=== PATIENT | female | born 1955 | race Caucasian/White ===

== ENCOUNTER → 2019-05-08 | Day surgery (SDC) | payer BC ==
[~2019-05-08] MED LIST: Buffered Lidocaine 1% SYRIN* 1 ML/SYRINGE INTRADERM ONE; Dexamethasone IV* 4 MG/ML 1 ML (4 MG) ONE; Dextrose 50% VIAL 50 ml ONE; Famotidine IV* 10 MG/ML 2 ML (20 mg) IV ONE; Famotidine IV* 10 MG/ML 2 ML (20 mg) ONE; Lactated Ringers 1000 ML Bag* 1,000 ML IV SCH; Levofloxacin 500 MG IVPREMIX(* 500 MG/100 ML BAG IVPB ONE; Lidocaine 2% PF * 5 ML VIAL ONE; Midazolam* 1 MG/ML 5 ML VIAL (5 MG) ONE; Naloxone* 0.4 MG/ML 1 ML VIAL IV PRN; Ondansetron INJ* 2 MG/ML VIAL IV PRN; Ondansetron INJ* 2 MG/ML VIAL ONE; Phenylephrine 40 MCG/ML SYRINGE ONE; Propofol* 10 MG/ML 20 ML BTL ONE; fentaNYL* 50 MCG/ML 2 ML VIAL (100 MCG VIAL) IV PRN; fentaNYL* 50 MCG/ML 2 ML VIAL (100 MCG VIAL) ONE
[2019-05-08 15:29] VITALS: BP 133/74
--- NOTE | 2019-05-08 16:02 | OP ---
CC: Dr. Danielle Munoz; Dr. Lancaster * DATE OF OPERATION: 05/08/19 - [facility] DATE OF : 55 SURGEON: Yogi Lancaster MD ANESTHESIOLOGIST: Dr. Jennings. ANESTHESIA: General. PRE-OP DIAGNOSIS: Large multiple bilateral renal calculi. POST-OP DIAGNOSIS: Large multiple bilateral renal calculi. OPERATIVE PROCEDURE: Shockwave lithotripsy of left renal calculus. COMPLICATIONS: None. POSTOPERATIVE CONDITION: Stable. INDICATIONS: Lorene Mccarty is a 64-year-old lady with bilateral partial staghorn renal calculi. She had recently been evaluated for severe left hydronephrosis secondary to approximately 2-cm calculus at the left ureteropelvic junction. She had undergone successful stent insertion and is now being brought in for an attempted shockwave lithotripsy to try to fragment the calculus. Because of the large stone burden, I have explained to her that she may require multiple procedures including a followup ureteroscopy and laser lithotripsy to try and significantly reduce the stone burden. DESCRIPTION OF PROCEDURE: After induction of general anesthesia, the patient was placed on the lithotripsy table in supine position. The large calculus at the left ureteropelvic junction was identified on fluoroscopy and shockwave lithotripsy was commenced at a rate of 60 shocks per minute. Periodic imaging revealed adequate localization and a total of 2400 shocks were administered. The patient has additional multiple left renal calculi which I did not attempt to breakup at this time because of the limitations on how many shock waves could be used safely in a certain session. My plan is to obtain a postoperative x-ray to assess the degree of fragmentation and then to decide whether to bring her back for a ureteroscopy and laser lithotripsy. The patient tolerated the procedure satisfactorily and was transferred back to the recovery area in stable condition. [id number]/[facility] #: [id number] MTDD
== END | disposition home or self-care (01) ==
LOC: OR 09:13
PROVIDERS: ATTEND Urology
DX: N20.0 Calculus of kidney (principal); I10 Essential (primary) hypertension; E11.8 Type 2 diabetes mellitus with unspecified complications; Z79.84 Long term (current) use of oral hypoglycemic drugs; G47.33 Obstructive sleep apnea (adult) (pediatric); E78.00 Pure hypercholesterolemia, unspecified; D47.2 Monoclonal gammopathy; D86.9 Sarcoidosis, unspecified; Z86.711 Personal history of pulmonary embolism
CPT/HCPCS: 74018; J1100; J1956; J2250; J2405; J2704; J3010

== ENCOUNTER 2019-06-09 05:59 | Day surgery (SDC) | payer BC ==
--- NOTE | 2019-06-06 21:07 | HP ---
CC: Danielle Munoz MD; Maurilio Jacobsen MD; Lisbeth Salgado MD, [facility], [place] * ADMITTING HISTORY AND PHYSICAL: DATE OF ADMISSION: 06/09/19 ADMITTING DIAGNOSES: 1. Bilateral renal calculi. 2. Left hydronephrosis. PLANNED PROCEDURES: Left ureteroscopy and pyeloscopy, laser lithotripsy of left renal calculi, and left stent replacement. SURGEON: Yogi Lancaster MD. HISTORY OF PRESENT ILLNESS: Loerne Mccarty is a 64-year-old lady with multiple medical issues and large bilateral staghorn renal calculi. She had recently been evaluated for severe left hydronephrosis secondary to an obstructing calculus at the left ureteropelvic junction and had undergone left stent insertion followed by shockwave lithotripsy. This resulted in partial fragmentation, but she still has residual calculus, which I suspect will cause the current obstruction if I were to remove the left stent. She is now being brought in for an attempted laser lithotripsy to see if I can debulk the stone enough to be able to allow her to function without a stent. PAST MEDICAL HISTORY: Significant for: 1. Recurrent renal calculi. 2. Sarcoidosis. 3. History of monoclonal gammopathy. 4. Remote history of pulmonary embolism. 5. Diabetes mellitus. 6. Hypertension. 7. History of sleep apnea. 8. History of high cholesterol. PAST SURGICAL HISTORY: Significant for recent left stent insertion and shockwave lithotripsy. Prior to that, she has had 3 C-sections, laparotomy and hysterectomy, and surgery for a left ovarian cyst. MEDICATIONS: 1. Potassium citrate 30 mEq b.i.d. 2. Furosemide 10 mg daily. 3. Allopurinol 300 mg 2 tablets daily. 4. Simvastatin 20 mg once a day. 5. Metoprolol 50 mg daily. 6. Amlodipine 5 mg daily. 7. Metformin 1000 mg daily. 8. Hydroxychloroquine 200 mg b.i.d. 9. Glyburide 10 mg daily. 10. Eye drops. ALLERGIES AND INTOLERANCES: CEFZIL, CODEINE, NYSTATIN, VICODIN. SOCIAL HISTORY: Smoking history: She is a nonsmoker. FAMILY HISTORY: Negative for stones. REVIEW OF SYSTEMS: She denies any chest pain or shortness of breath. She does have moderate obesity, which limits her physical activity. PHYSICAL EXAMINATION GENERAL: Reveals a pleasant middle-aged lady. VITAL SIGNS: Blood pressure is 142/74, pulse 85 per minute and regular, temperature 97.5, oxygen saturation 96% on room air. LUNGS: Clear bilaterally. CARDIOVASCULAR: Regular rate and rhythm, S1, S2. ABDOMEN: Soft with a large ventral hernia and mild left costovertebral angle tenderness. IMPRESSION: A 64-year-old lady with large bilateral renal calculi and an obstructing calculus in the left ureteropelvic junction. PLAN: Plan is left ureteroscopy and pyeloscopy, laser lithotripsy of left renal calculus, and stent replacement. [id number]/[facility] #: [id number] MTDD
[~2019-06-09 05:59] MED LIST changes: -Dexamethasone IV* 4 MG/ML 1 ML (4 MG) ONE; -Dextrose 50% VIAL 50 ml ONE; -Famotidine IV* 10 MG/ML 2 ML (20 mg) IV ONE; -Famotidine IV* 10 MG/ML 2 ML (20 mg) ONE; -Lactated Ringers 1000 ML Bag* 1,000 ML IV SCH; -Levofloxacin 500 MG IVPREMIX(* 500 MG/100 ML BAG IVPB ONE; -Lidocaine 2% PF * 5 ML VIAL ONE; -Midazolam* 1 MG/ML 5 ML VIAL (5 MG) ONE; -Naloxone* 0.4 MG/ML 1 ML VIAL IV PRN; -Ondansetron INJ* 2 MG/ML VIAL IV PRN; -Ondansetron INJ* 2 MG/ML VIAL ONE; -Phenylephrine 40 MCG/ML SYRINGE ONE; -Propofol* 10 MG/ML 20 ML BTL ONE; -fentaNYL* 50 MCG/ML 2 ML VIAL (100 MCG VIAL) IV PRN; -fentaNYL* 50 MCG/ML 2 ML VIAL (100 MCG VIAL) ONE
[2019-06-09] MEDS ORDERED: Lactated Ringers 1000 ML Bag* 1,000 ML IV SCH (06:00)
[2019-06-09] MEDS ORDERED: Levofloxacin 500 MG IVPREMIX(* 500 MG/100 ML BAG IVPB ONE (06:49)
[2019-06-09] MEDS ORDERED: Gentamicin ADULT (*) 160 MG in NS 0.9% 100 ML* 100 ML IVPB ONE (07:00)
[2019-06-09] MEDS ORDERED: Iohexol 180 (CONTRAST) 10 ML SDV IV ONE (07:19)
[2019-06-09] MEDS ORDERED: Rocuronium* 10 MG/ML VIAL ONE (07:29)
[2019-06-09] MEDS ORDERED: Propofol* 10 MG/ML 20 ML BTL ONE (07:29)
[2019-06-09] MEDS ORDERED: fentaNYL* 50 MCG/ML 2 ML VIAL (100 MCG VIAL) ONE (07:29)
[2019-06-09] MEDS ORDERED: Midazolam* 1 MG/ML 2 ML VIAL (2 MG) ONE (07:30)
[2019-06-09] MEDS ORDERED: Lidocaine 2% PF * 5 ML VIAL ONE (07:44)
[2019-06-09] MEDS ORDERED: DiMENhydriNATE IV* 50 MG/ML VIAL IV PUSH PRN (08:07)
[2019-06-09] MEDS ORDERED: Scopolamine 1.5 mg* PATCH TRANSDERM PRN (08:07)
[2019-06-09] MEDS ORDERED: oxyCODONE TAB* 5 MG TAB PO PRN (08:07)
[2019-06-09] MEDS ORDERED: fentaNYL* 50 MCG/ML 2 ML VIAL (100 MCG VIAL) IV PRN (08:07)
[2019-06-09] MEDS ORDERED: Naloxone* 0.4 MG/ML 1 ML VIAL IV PRN (08:07)
[2019-06-09] MEDS ORDERED: Ondansetron INJ* 2 MG/ML VIAL IV PRN (08:07)
[2019-06-09] MEDS ORDERED: Furosemide IV* 10 MG/ML 2 ML VIAL (20 MG) ONE (08:32)
[2019-06-09] MEDS ORDERED: Glycopyrrolate IV* 0.2 MG/ML 1 ML VIAL ONE (09:05)
[2019-06-09] MEDS ORDERED: Neostigmine Methylsulfate* 3 MG/3 ML SYRINGE ONE (09:05)
[2019-06-09] MEDS ORDERED: Ondansetron INJ* 2 MG/ML VIAL ONE ×2 (09:33→09:54)
[2019-06-09 10:39] VITALS: BP 124/76
--- NOTE | 2019-06-09 12:44 | OP ---
CC: Dr. Danielle Munoz; Dr. Lancaster OPERATIVE REPORT: DATE OF OPERATION: 06/09/19 DATE OF : 55 SURGEON: Yogi Lancaster MD ANESTHESIOLOGIST: Dr. Peralta. ANESTHESIA: General. PRE-OP DIAGNOSIS: Multiple bilateral staghorn renal calculi. POST-OP DIAGNOSIS: Multiple bilateral staghorn renal calculi. OPERATIVE PROCEDURE: Cystoscopy, left stent removal, left retrograde pyelogram, left ureteroscopy, l eft pyeloscopy and laser lithotripsy of multiple left renal calculi and left stent insertion. COMPLICATIONS: None. POSTOPERATIVE CONDITION: Stable. STENT USED: A 8-Malaysian Elrosa universal length stent, left ureter. OPERATIVE FINDINGS: Multiple large staghorn left renal calculi with left hydronephrosis. INDICATIONS: Lorene Mccarty is a 64-year-old lady with bilateral staghorn calculi. She had been urgentl y evaluated for severe left hydronephrosis and had undergone stent insertion followed by shockwave li thotripsy. This had resulted in partial fragmentation of the obstructing calculus. In addition, she has multiple other large calculi and is now being brought in for an attempt at further breakup of th e stones. DESCRIPTION OF PROCEDURE: After induction of general anesthesia, the patient was placed in dorsal li thotomy position, sequential compression devices were in place and functioning. Initial cystoscopy r evealed a normal-appearing bladder with the previously placed stent noted to be in good position. Th is was removed. Retrograde pyelogram revealed fullness of the left collecting system. A 6-Malaysian rod irigid ureteroscope was introduced and advanced under direct vision. The entire distal mid and proxi mal ureter were visualized and were unremarkable except for some mild inflammation secondary to the i ndwelling stent. The renal pelvis was entered and pyeloscopy was performed. There was a large calcu jaye noted right at the area of the renal pelvis close to the ureteropelvic junction with multiple add itional calculi noted. Using a 550 micron holmium laser, laser lithotripsy was carried out, the larg e calculus was completely fragmented into multiple fragments and I was also able to satisfactorily br eak up some of the additional calculi within the kidney. I did not attempt to completely break all t he stones up as this would run the risk of significant fluid absorption given the stone burden and af ter breakup of the obstructing calculus and several additional calculi, the ureteroscope was carefull y withdrawn under direct vision. An 8-Malaysian Elrosa stent was introduced and positioned under fluoro scopy with good proximal and distal positioning obtained. The bladder was emptied. My plan is to ob tain a postoperative x-ray and then to decide whether to bring her back in a few months for another a ttempt at trying to clean out all the stone fragments from that kidney. The patient tolerated the procedure satisfactorily and was transferred back to the recovery area in s table condition. [id number]/[facility] #: [id number]
[2019-06-12] MEDS ORDERED: Scopolamine PATCH Remove* 1 NOTE MISC PATCH OFF ONE (08:08)
== END 2019-06-09 11:20 | disposition home or self-care (01) ==
LOC: OR 05:59
PROVIDERS: ATTEND Urology
DX: N13.2 Hydronephrosis with renal and ureteral calculous obstruction (principal); E11.9 Type 2 diabetes mellitus without complications; Z79.84 Long term (current) use of oral hypoglycemic drugs; Z87.442 Personal history of urinary calculi; I10 Essential (primary) hypertension; D86.9 Sarcoidosis, unspecified; E66.01 Morbid (severe) obesity due to excess calories; J45.909 Unspecified asthma, uncomplicated; G47.30 Sleep apnea, unspecified; D47.2 Monoclonal gammopathy; F41.8 Other specified anxiety disorders; Z86.711 Personal history of pulmonary embolism
CPT/HCPCS: 74018; 74420; C2625; J1580; J1940; J1956; J2250; J2405; J2704; J2710; J3010